=== PATIENT | male | born 1945 | race Two or more races ===

== ENCOUNTER 2018-04-17 01:48 | Inpatient (IN) | payer OTHER, MEDICARE ==
[~2018-04-17] VITALS: Ht 167.6 cm; Wt 58.1 kg
[2018-04-17 02:00] VITALS: BP 159/76
[2018-04-17] MEDS ORDERED: AMLO10TA4 PO (02:57)
[2018-04-17] MEDS ORDERED: LISI40TA4 PO (02:57)
[2018-04-17] MEDS ORDERED: MELO-107 PO (02:57)
--- NOTE | 2018-04-17 03:19 | NUR ---
ADMIT RN NOTES PT Casimiro FROM [place] WITH 2 EMT VIA [employer], PT A/OX4, TOLERATING ROOM AIR 98% DENIES PAIN AT THIS TIME NO NAUSEA AND VOMITING NOT IN DISTRESS PT C/O HAS RIGHT LEG AND RIGHT ARM WEAKNESS X 1 WEEK. NOT IN DISTRESS. HEAD TO TOE SKIN ASSESSMENT IS DONE SKIN IS INTACT, KEPT CLEAN DRY AND COMFORTABLE, SAFETY MEASURES IMPLEMENTED WILL MONITOR.
[2018-04-17] MEDS ORDERED: ZOLPIDEM TARTRATE 5 MG TABLET PO PRN (03:30)
[2018-04-17] MEDS ORDERED: MAGNESIUM HYDROXIDE 30 ML UDC PO PRN (03:30)
[2018-04-17] MEDS ORDERED: ACETAMINOPHEN 325 MG TABLET PO PRN (03:30)
[2018-04-17] MEDS ORDERED: HYDROCODONE/APAP 5/325MG 1 EACH TABLET PO PRN (03:30)
[2018-04-17] MEDS ORDERED: MAG HYDROX/AL HYDROX/SIMETH 30 ML UDC PO PRN (03:30)
[2018-04-17] MEDS ORDERED: Z GUARD REMEDY 2 OZ OINT TP PRN (03:30)
[2018-04-17] MEDS ORDERED: ONDANSETRON HCL/PF 4 MG/2 ML VIAL IVP PRN (03:30)
--- NOTE | 2018-04-17 06:08 | NUR ---
FIRE EATER NOTES ASLEEP AND EASILY AWAKEN STABLE, NOT IN DISTRESS. TOLERATING ROOM AIR 98%. RESPIRATION EVEN AND UNLABORED. KEPT CLEAN AND DRY AND COMFORTABLE, ALL NURSING CARE RENDERED. NEEDS ATTENDED AND ANTICIPATED, GOOD SKIN CARE PROVIDED. NO COMPLAIN OF PAIN. SR 60'S. ON LOW BED AT ALL TIMES TO ENSURE SAFETY. SAFE HAZARD FREE ENVIRONMENT PROVIDED. CALL LIGHT WITHIN EASY TO REACH. WILL ENDORSE NEXT SHIFT CONTINUITY OF CARE.
--- NOTE | 2018-04-17 07:15 | NUR ---
telephone lineman initial notes received patient in bed, awake, head of bed elevated, no SOB or distress noted, on room air and tolerated well. Alert and oriented x 3, verbally responsive and able to make needs known. On tele monitor SB hear rate of 55. No complaint of pain or discomfort noted. IV intact and patent hL only. Call light with in patient reach, will continue to monitor accordingly.
[2018-04-17 07:23] LABS: BASOPHILS % (AUTO) 0.2 % (0.0-2.0); EOSINOPHILS % (AUTO) 0.7 % (0.0-6.0); HEMATOCRIT 39 % (39-51); HEMOGLOBIN 13.5 g/dL (13.5-17.5); LYMPHOCYTES # (AUTO) 1.4 /CMM (0.8-4.8); MEAN CORPUSCULAR HEMOGLOBIN 32 PG (26.0-33.0); MEAN CORPUSCULAR HGB CONC 34 g/dl (31.0-36.0); MEAN CORPUSCULAR VOLUME 93 fL (80-96); MONOCYTES # (AUTO) 0.6 /CMM (0.1-1.30); MONOCYTES % (AUTO) 6.3 % (2.0-12.0); NEUTROPHILS # (AUTO) 7.1 /CMM (1.8-8.9); NEUTROPHILS % (AUTO) 77.8 % (43.0-81.0); PLATELET COUNT (AUTO) 251 /CMM (150-450); RDW COEFFICIENT OF VARIATION 13.1 (11.5-15.0); RED BLOOD CELL COUNT(AUTO) 4.23 MIL/uL (4.5-6.0); WHITE BLOOD COUNT (AUTO) 9.1 K/uL (4.3-11.0)
[2018-04-17 07:38] LABS: CALCIUM, SERUM 8.5 mg/dL (8.5-10.1); CARBON DIOXIDE 29 mmol/L (21-32); CHLORIDE 97 mmol/L (98-107); CREATININE 0.5 mg/dL (0.6-1.3); GLUCOSE 133 mg/dL (74-106); MAGNESIUM 1.9 mg/dL (1.8-2.4); PHOSPHORUS 3.3 mg/dL (2.5-4.9); POTASSIUM 3.4 mmol/L (3.5-5.1); SODIUM SERUM 133 mmol/L (136-145); UREA NITROGEN, BLOOD 5 mg/dL (7-18)
[2018-04-17 07:48] LABS: CHOLESTEROL 146 mg/dL (<200); HDL CHOLESTEROL 57 mg/dL (40-60); LDL 83 mg/dL (0-99); THYROID STIMULATING HORMONE 2.189 uIU/mL (0.358-3.74); TRIGLYCERIDES 31 mg/dL (30-150)
[2018-04-17 08:00] VITALS: BP_SYST 141; BP_SYST 149; BP_DIAS 74; BP_DIAS 91
[2018-04-17] MEDS: ASPIRIN 325 MG TABLET PO SCH (08:28)
[2018-04-17] MEDS: AMLODIPINE BESYLATE 10 MG TABLET PO SCH (08:28)
[2018-04-17] MEDS: PANTOPRAZOLE 40 MG TABLET.DR PO SCH (08:28)
[2018-04-17] MEDS: LISINOPRIL (20MG) 20 MG TABLET PO SCH (08:29)
[2018-04-17] MEDS ORDERED: POTASSIUM CHLORIDE 20 MEQ TAB.PRT.SR PO SCH (11:00)
[2018-04-17] MEDS ORDERED: POTASSIUM CHLORIDE 20 MEQ TAB.PRT.SR PO ONE (14:17)
[2018-04-17 16:00] VITALS: BP 129/71
--- NOTE | 2018-04-17 19:00 | NUR ---
MS RN OPENING NOTE RECEIVE PATIENT AWAKE IN BED, A/O X 3, NO SOB OR DISTRESS NOTED, CALL LIGHT WITHIN REACH. SAFETY MEASURES IMPLEMENTED. WILL CONTINUE TO MONITOR THROUGHOUT SHIFT.
--- NOTE | 2018-04-17 19:15 | NUR ---
ms rn closing notes All needs provided, attended, and anticipated. Patient in stable condition. Endorsed to next shift RN to continue care. Call light with in patient reach.
[2018-04-17 20:00] VITALS: BP 125/70
[2018-04-17 21:13] LABS: APPEARANCE,URINE SL CLOUDY (CLEAR); BILIRUBIN,URINE NEGATIVE (NEGATIVE); BLOOD, URINE NEGATIVE Ery/uL (NEGATIVE); COLOR,URINE YELLOW (YELLOW); KETONES,URINE NEGATIVE (NEGATIVE); LEUKOCYTE ESTERASE ,URINE NEGATIVE (NEGATIVE); NITRITE, URINE NEGATIVE (NEGATIVE); PROTEIN,URINE NEGATIVE (NEGATIVE); UGLUCOSE NEGATIVE (NEGATIVE); UROBILINOGEN,URINE 0.2 EU/dL (0.2)
[2018-04-17] MEDS: ATORVASTATIN 40 MG TABLET PO SCH (21:33)
[2018-04-17] MEDS: IV NS 0.9% 1,000 ML IV PRN (21:41)
--- NOTE | 2018-04-18 06:12 | NUR ---
MS RN CLOSING NOTES ASLEEP AND EASILY AWAKEN STABLE, NOT IN DISTRESS. NO C/O PAIN. TOLERATING ROOM AIR 99%. RESPIRATION EVEN AND UNLABORED. KEPT CLEAN AND DRY AND COMFORTABLE, ALL NURSING CARE RENDERED. NEEDS ATTENDED AND ANTICIPATED, GOOD SKIN CARE PROVIDED. ON LOW BED AT ALL TIMES TO ENSURE SAFETY. SAFE HAZARD FREE ENVIRONMENT PROVIDED. CALL LIGHT WITHIN EASY TO REACH. WILL ENDORSE NEXT SHIFT CONTINUITY OF CARE.
--- NOTE | 2018-04-18 07:00 | NUR ---
RN INITIAL NOTES PT AWAKE AND ALERT. IV ACCES R AC 20 PATENT AND INTACT RUNNING NS AT 75 ML. PT ON BED REST. SKIN INTACT. BED POSITION ON LOW, CALL LIGHT WITHIN REACH.
[2018-04-18 07:02] LABS: INR 0.93 (0.87-1.13)
[2018-04-18 07:06] LABS: ALANINE AMINOTRANSFERASE 20 U/L (12-78); ALBUMIN 3.1 g/dL (3.4-5.0); ALKALINE PHOSPHATASE 64 U/L (46-116); ASPARTATE AMINOTRANSFERASE 20 U/L (15-37); BILIRUBIN,DIRECT 0.1 mg/dL (0.0-0.2); BILIRUBIN,TOTAL 0.4 mg/dL (0.2-1.0); CALCIUM, SERUM 8.7 mg/dL (8.5-10.1); CARBON DIOXIDE 31 mmol/L (21-32); CHLORIDE 101 mmol/L (98-107); CREATININE 0.5 mg/dL (0.6-1.3); GLUCOSE 94 mg/dL (74-106); MAGNESIUM 1.9 mg/dL (1.8-2.4); PHOSPHORUS 3.8 mg/dL (2.5-4.9); POTASSIUM 3.9 mmol/L (3.5-5.1); SODIUM SERUM 136 mmol/L (136-145); TOTAL PROTEIN, SERUM 6.2 g/dL (6.4-8.2); UREA NITROGEN, BLOOD 8 mg/dL (7-18)
[2018-04-18 07:12] LABS: CREATINE KINASE, TOTAL 63 U/L (39-308); THYROID STIMULATING HORMONE 2.747 uIU/mL (0.358-3.74)
[2018-04-18 07:15] LABS: IRON, SERUM 49 ug/dl (50-175); TOTAL IRON BINDING CAPACITY 227 ug/dl (250-450)
[2018-04-18 08:00] VITALS: BP 129/67
[2018-04-18] MEDS: LISINOPRIL (20MG) 20 MG TABLET PO SCH (08:27)
[2018-04-18] MEDS: PANTOPRAZOLE 40 MG TABLET.DR PO SCH (08:27)
[2018-04-18] MEDS: AMLODIPINE BESYLATE 10 MG TABLET PO SCH (08:27)
[2018-04-18] MEDS: ASPIRIN 325 MG TABLET PO SCH (08:27)
[2018-04-18 13:28] LABS: FREE PSA 0.23 ng/mL (0.00-45); PROSTATE SPECIFIC ANTIGEN SCR 0.93 ng/mL (0.00-4.00)
[2018-04-18 16:00] VITALS: BP 117/70
[2018-04-18] MEDS: IV NS 0.9% 1,000 ML IV PRN (17:56)
--- NOTE | 2018-04-18 19:11 | NUR ---
RN CLOSING NOTES PT NEEDS WERE ATTENDED AND ANTICIPATED. PT IS STABLE AT THIS TIME. PT CARE IS ENDORSED TO THE NIGHT RN. CALL LIGHT WITHIN PATIENT'S REACH.
--- NOTE | 2018-04-18 19:33 | NUR ---
MS/RN OPENING NOTES PATIENT IN BED, AWAKE, ALERT, CAN VERBALIZE NEEDS, WATCHING TV, DENIES PAIN, ABLE TO MOVE LEFT SIDE BUT RIGHT SIDED WEAKNESS, RESPIRATIONS EVEN AND UNLABORED, SKIN WARM TO TOUCH, IV FLUIDS GAUGE 20 ON RIGHT A/C PATENT WITH NO S/S OF INFILTRATION. CALL LIGHTS WITHIN REACH, BED IN LOCK POSITION WILL MONITOR.
[2018-04-18 20:00] VITALS: BP 117/73
[2018-04-18] MEDS: ATORVASTATIN 40 MG TABLET PO SCH (20:59)
--- NOTE | 2018-04-19 06:15 | NUR ---
321-2 PATIENT ABLE TO SLEEP DURING THE NIGHT, ABLE TO VERBALIZE NEEDS, ASSISTED FOR SAFETY, REQUIRE ONE PERSON ASSIST WITH RIGHT SIDE WEAKNESS, CALL LIGHTS WITHIN REACH, BED IN LOCK POSITION, WILL ENDORSE TO AM RN FOR ENRIKE.
[2018-04-19 07:12] LABS: BASOPHILS % (AUTO) 0.4 % (0.0-2.0); EOSINOPHILS % (AUTO) 1.9 % (0.0-6.0); HEMATOCRIT 43 % (39-51); HEMOGLOBIN 14.4 g/dL (13.5-17.5); LYMPHOCYTES # (AUTO) 2.2 /CMM (0.8-4.8); LYMPHOCYTES % (AUTO) 25.8 % (20.0-44.0); MEAN CORPUSCULAR HEMOGLOBIN 32 PG (26.0-33.0); MEAN CORPUSCULAR HGB CONC 33 g/dl (31.0-36.0); MEAN CORPUSCULAR VOLUME 95 fL (80-96); MONOCYTES # (AUTO) 0.5 /CMM (0.1-1.30); MONOCYTES % (AUTO) 6.2 % (2.0-12.0); NEUTROPHILS # (AUTO) 5.6 /CMM (1.8-8.9); NEUTROPHILS % (AUTO) 65.7 % (43.0-81.0); PLATELET COUNT (AUTO) 287 /CMM (150-450); RED BLOOD CELL COUNT(AUTO) 4.58 MIL/uL (4.5-6.0); WHITE BLOOD COUNT (AUTO) 8.6 K/uL (4.3-11.0)
--- NOTE | 2018-04-19 07:19 | NUR ---
RN INITIAL NOTES PT IS AWAKE AND ALERT, SITTING ON BED. NO SIGNS OF LABORED BREATHING. IV ACCESS 20G ON THE RIGHT AC IS PATENT AND INTACT. RIGHT SIDE LOWER AND UPPER EXTREMITY WEAKNESS. PT DENIES ANY PAIN. PT IS ON BEDREST BUT WILL CALL FOR ASSISTANCE IF NEEDED. CALL LIGHT WITHIN REACH. WILL CONTINUE TO MONITOR AND ASSESS THE PT.
[2018-04-19 07:34] LABS: CALCIUM, SERUM 8.8 mg/dL (8.5-10.1); CARBON DIOXIDE 29 mmol/L (21-32); CHLORIDE 98 mmol/L (98-107); CREATININE 0.7 mg/dL (0.6-1.3); GLUCOSE 122 mg/dL (74-106); PHOSPHORUS 3.5 mg/dL (2.5-4.9); POTASSIUM 4.3 mmol/L (3.5-5.1); SODIUM SERUM 134 mmol/L (136-145); UREA NITROGEN, BLOOD 7 mg/dL (7-18)
[2018-04-19 08:00] VITALS: BP 151/69
[2018-04-19] MEDS: PANTOPRAZOLE 40 MG TABLET.DR PO SCH (08:43)
[2018-04-19] MEDS: AMLODIPINE BESYLATE 10 MG TABLET PO SCH (08:44)
[2018-04-19] MEDS: LISINOPRIL (20MG) 20 MG TABLET PO SCH (08:44)
[2018-04-19] MEDS: ASPIRIN 325 MG TABLET PO SCH (08:44)
--- NOTE | 2018-04-19 15:01 | NUR ---
ms rn notes Received a call from the radiologist regarding patient MRI of the C-spine and MRI brain result and mentioned about the compression on the C5-C6. Paged Dr. Rodriguez about the MRI result and unable to contact MD and left a voicemail message. Informed Dr. Carr about the MRI result and per MD she will contact neurosurgeon. Hold discharge for now per charge nurse, and she will contact counter caser to transfer patient to another hospital. All orders carried out and noted.
[2018-04-19 16:00] VITALS: BP 106/62
[2018-04-19 16:09] VITALS: BP 106/62
--- NOTE | 2018-04-19 19:13 | NUR ---
ms rn closing notes All needs provided, attended, and anticipated. Patient in stable condition at this time. No complaint of pain or discomfort at this time. Endorsed to next shift RN to continue care.
--- NOTE | 2018-04-19 19:15 | NUR ---
RN OPENING NOTES RECEIVED PT IN BED, ALERT AND ORIENTED X 4, NO SOB, BREATHING EVEN AND UNLABORED, DENIES PAIN ,NO N/V, IN NO ACUTE DISTRESS. ALL PATIENT'S NEEDS ATTENDED TO. PLACED CALL LIGHT WITHIN REACH. BD IN LOW POSITION AND LOCKED IN PLACE. PATIENT AWARE THAT WE ARE WAITING FOR BED AVAILABILITY IN [facility] FOR HIS TRANSFER. WILL CONTINUE TO MONITOR PT.
--- NOTE | 2018-04-19 20:27 | NUR ---
RN NOTES PATIENT'S DAUGHTER, SAMPSON, AT BEDSIDE, UPDATE GIVEN RE: PATIENT'S TRANSFER. AGREES WITH PLAN OF CARE.
[2018-04-19] MEDS: ATORVASTATIN 40 MG TABLET PO SCH (21:02)
--- NOTE | 2018-04-19 23:14 | NUR ---
RN NOTES REPORT GIVEN TO EVON MULTANI AT [facility]. PT MADE AWARE OF TRANSFER, AGREES WITH PLAN OF CARE.
--- NOTE | 2018-04-20 00:05 | NUR ---
DISTRIBUTION OPERATION SUPERVISOR NOTES ALL DISCHARGE INSTRUCTIONS GIVEN TO PATIENT, VERBALIZED UNDERSTANDING. PT WAS UNABLE TO SIGN DUE TO RIGHT SIDED WEAKNESS. PT ALERT AND ORIENTED, PICKED UP BY 2 PERSONNEL OF [facility] [employer] IN STABLE CONDITION. SKIN INTACT AND IN NO ACUTE DISTRESS. INFORMED EVON ALEXANDRA OF PATIENT'S ARRIVAL AND WILL BE ADMITTED TO [facility], RM [phone]. PATIENT EXITED UNIT SAFELY VIA GURNEY, NO SOB, BREATHING EVEN AND UNLABORED AND DENIES PAIN. PATIENT WITH NO BELONGINGS PER PATIENT, HIS DAUGHTER BROUGHT EVERYTHING HOME.
== END 2018-04-20 00:05 | disposition short-term general hospital (02) | DRG 58 ==
LOC: TELE 01:48 → MED 08:26
PROVIDERS: ADMIT Hospitalist; ATTEND Hospitalist
DX: G72.9 Myopathy, unspecified (principal); M50.022 Cervical disc disorder at C5-C6 level with myelopathy; I10 Essential (primary) hypertension; M48.02 Spinal stenosis, cervical region; E87.1 Hypo-osmolality and hyponatremia; E78.5 Hyperlipidemia, unspecified; E87.6 Hypokalemia; K21.9 Gastro-esophageal reflux disease without esophagitis; F17.200 Nicotine dependence, unspecified, uncomplicated; R29.6 Repeated falls; M19.90 Unspecified osteoarthritis, unspecified site
CPT/HCPCS: 36415; 70450-TC; 70551-TC; 71045-TC; 71250-TC; 72141-TC; 80048-TC; 80061-TC; 80076-TC; 81000-TC; 82550-TC; 82746; 83540-TC; 83735-TC; 84100-TC; 84153-TC; 84154-TC; 84443-TC; 85025-TC; 85652-TC; 85730-TC; 86140-TC; 87081-TC; 87086-TC; 92611-TC; 93307-TC; 93880-TC; 97112-TC; 97530-TC; A4606; J7030; Z7610

== ENCOUNTER 2018-04-22 19:37 | Inpatient (IN) | payer OTHER, MEDICARE ==
[~2018-04-22] VITALS: Ht 180.3 cm; Wt 53.5 kg
[~2018-04-22 19:37] MED LIST: AMLO10TA4 PO; LISI40TA4 PO; MELO-107 PO
[2018-04-22 20:00] VITALS: BP 111/67
[2018-04-22] MEDS ORDERED: PANT40TA2 PO (22:35)
[2018-04-22] MEDS ORDERED: LISI40TA4 PO (22:35)
[2018-04-22] MEDS ORDERED: [UNRECOGNIZED DRUG - CODE] SQ (22:35)
[2018-04-22] MEDS ORDERED: MORPHINE IVP (22:35)
[2018-04-22] MEDS ORDERED: [UNRECOGNIZED DRUG - CODE] IV (22:35)
[2018-04-22] MEDS ORDERED: TRAM50TA2 PO (22:35)
[2018-04-22] MEDS ORDERED: ONDA4TAB5 IVP (22:35)
[2018-04-22] MEDS ORDERED: HYDR20VI6 IV (22:35)
[2018-04-22] MEDS ORDERED: CYCL10TA9 PO (22:35)
[2018-04-22] MEDS ORDERED: AMLO10TA2 PO (22:35)
[2018-04-22] MEDS ORDERED: DOCU-141 PO (22:35)
[2018-04-23 00:10] VITALS: BP 137/81
[2018-04-23] MEDS ORDERED: MORPHINE SULFATE INJ 2 MG/ML DISP.SYRIN IV PRN (02:00)
[2018-04-23] MEDS ORDERED: ONDANSETRON HCL/PF 4 MG/2 ML VIAL IVP PRN (02:00)
[2018-04-23] MEDS ORDERED: Z GUARD REMEDY 2 OZ OINT TP PRN (02:00)
[2018-04-23] MEDS ORDERED: ACETAMINOPHEN 325 MG TABLET PO PRN (02:00)
[2018-04-23] MEDS ORDERED: ZOLPIDEM TARTRATE 5 MG TABLET PO PRN (02:00)
[2018-04-23] MEDS ORDERED: MAGNESIUM HYDROXIDE 30 ML UDC PO PRN (02:00)
[2018-04-23] MEDS ORDERED: HYDROCODONE/APAP 10/325MG 1 EA TABLET PO PRN (02:00)
[2018-04-23 03:14] LABS: BASOPHILS % (AUTO) 0.2 % (0.0-2.0); EOSINOPHILS % (AUTO) 0.4 % (0.0-6.0); HEMATOCRIT 42 % (39-51); HEMOGLOBIN 14.1 g/dL (13.5-17.5); LYMPHOCYTES # (AUTO) 1.2 /CMM (0.8-4.8); LYMPHOCYTES % (AUTO) 10.8 % (20.0-44.0); MEAN CORPUSCULAR HEMOGLOBIN 32 PG (26.0-33.0); MEAN CORPUSCULAR HGB CONC 34 g/dl (31.0-36.0); MEAN CORPUSCULAR VOLUME 95 fL (80-96); MONOCYTES # (AUTO) 0.6 /CMM (0.1-1.30); MONOCYTES % (AUTO) 5.5 % (2.0-12.0); NEUTROPHILS # (AUTO) 9.6 /CMM (1.8-8.9); NEUTROPHILS % (AUTO) 83.1 % (43.0-81.0); PLATELET COUNT (AUTO) 276 /CMM (150-450); RDW COEFFICIENT OF VARIATION 13.1 (11.5-15.0); RED BLOOD CELL COUNT(AUTO) 4.41 MIL/uL (4.5-6.0); WHITE BLOOD COUNT (AUTO) 11.6 K/uL (4.3-11.0)
[2018-04-23 03:36] LABS: ALANINE AMINOTRANSFERASE 26 U/L (12-78); ALBUMIN 3.5 g/dL (3.4-5.0); ALKALINE PHOSPHATASE 75 U/L (46-116); ASPARTATE AMINOTRANSFERASE 24 U/L (15-37); BILIRUBIN,TOTAL 0.7 mg/dL (0.2-1.0); CALCIUM, SERUM 8.4 mg/dL (8.5-10.1); CARBON DIOXIDE 28 mmol/L (21-32); CHLORIDE 92 mmol/L (98-107); CREATININE 0.5 mg/dL (0.6-1.3); GLUCOSE 118 mg/dL (74-106); PHOSPHORUS 2.7 mg/dL (2.5-4.9); POTASSIUM 3.9 mmol/L (3.5-5.1); SODIUM SERUM 126 mmol/L (136-145); TOTAL PROTEIN, SERUM 6.9 g/dL (6.4-8.2); UREA NITROGEN, BLOOD 9 mg/dL (7-18)
[2018-04-23 04:00] VITALS: BP 136/83
--- NOTE | 2018-04-23 06:50 | NUR ---
IMPROVEMENT DIRECTOR NOTES AWAKE & RESPONSIVE. NOT IN ANY DISTRESS. NO SOB NOTED. DENIES ANY PAIN OR DISCOMFORT AT THIS TIME. ON TELE ST @ 108 WITH IVF INFUSING WELL. AM CARE DONE. MONITORED ACCORDINGLY. CALL LIGHT WITHIN REACH. BED IN LOWEST POSITION. SR UP X 3 FOR SAFETY WITH BED ALARM ON. WILL ENDORSE TO NEXT SHIFT.
[2018-04-23 07:06] LABS: EOSINOPHILS % (AUTO) 0.1 % (0.0-6.0); HEMATOCRIT 43 % (39-51); HEMOGLOBIN 14.6 g/dL (13.5-17.5); LYMPHOCYTES % (AUTO) 7.8 % (20.0-44.0); MEAN CORPUSCULAR HEMOGLOBIN 32 PG (26.0-33.0); MEAN CORPUSCULAR HGB CONC 34 g/dl (31.0-36.0); MEAN CORPUSCULAR VOLUME 93 fL (80-96); MONOCYTES # (AUTO) 0.6 /CMM (0.1-1.30); MONOCYTES % (AUTO) 4.3 % (2.0-12.0); NEUTROPHILS # (AUTO) 11.6 /CMM (1.8-8.9); NEUTROPHILS % (AUTO) 87.8 % (43.0-81.0); PLATELET COUNT (AUTO) 280 /CMM (150-450); RDW COEFFICIENT OF VARIATION 13.2 (11.5-15.0); RED BLOOD CELL COUNT(AUTO) 4.59 MIL/uL (4.5-6.0); WHITE BLOOD COUNT (AUTO) 13.2 K/uL (4.3-11.0)
[2018-04-23 07:22] LABS: CALCIUM, SERUM 8.5 mg/dL (8.5-10.1); CARBON DIOXIDE 25 mmol/L (21-32); CHLORIDE 91 mmol/L (98-107); CREATININE 0.5 mg/dL (0.6-1.3); GLUCOSE 119 mg/dL (74-106); MAGNESIUM 1.7 mg/dL (1.8-2.4); PHOSPHORUS 2.8 mg/dL (2.5-4.9); SODIUM SERUM 125 mmol/L (136-145); UREA NITROGEN, BLOOD 9 mg/dL (7-18)
--- NOTE | 2018-04-23 07:37 | NUR ---
AIRPORT TRAFFIC CONTROLLER NOTES PATIENT RECEIVED RESTING INSIDE ROOM. AWAKE, ALERT AND ORIENTED X 2, VERBALLY RESPONSIVE AND RESPONDS TO VERBAL AND TACTILE STIMULI. BREATHING EVEN AND UNLABORED. NO SOB OR ACUTE DISTRESS NOTED AT THIS TIME. PATIENT NOTED ATTEMPTING TO GET OUT OF BED, SIDE RAILS X [address] PRECAUTIONS IN PLACE. BED LOCKED AND IN LOW POSITION. BED ALARM ON. PATIENT REMINDED IF SAFETY MEASURES. CONTINUE ON TELEMETRY, SALICYLIC ACID BLENDER IN PLACE. ST 101. NECK BRACE AT BEDSIDE. PER RN REPORT, NECK BRACE TO BE USED WHEN PATIENT IS OUT OF BED. WILL CONTINUE TO MONITOR. CALL LIGHT WITHIN EASY REACH
[2018-04-23 08:00] VITALS: BP 145/84
[2018-04-23] MEDS: AMLODIPINE BESYLATE 10 MG TABLET PO SCH (08:29)
[2018-04-23] MEDS: DOCUSATE SODIUM 100 MG CAPSULE PO SCH ×2 (08:29→16:27)
[2018-04-23] MEDS: LISINOPRIL (20MG) 20 MG TABLET PO SCH (08:29)
[2018-04-23] MEDS: PANTOPRAZOLE 40 MG TABLET.DR PO SCH (08:29)
[2018-04-23] MEDS: Magnesium 1GM/D5W 100ML PREMIX 100 ML IV SCH ×2 (10:22→11:33)
--- NOTE | 2018-04-23 10:54 | NUR ---
SALES SUPPORT REPRESENTATIVE NOTES PATIENT SEEN AND EXAMINED BY DR. JACOB, VERIFIED ORDER FOR NECK BRACE USE. PER DR. JACOB, TO USE NECK BRACE WHEN PATIENT IS GETTING OUT OF BED. PER DR. JACOB, PATIENT MAY NEED TO UTILIZE NECK BRACE USE UNTIL 14 DAYS POST OP SUPPORT WITH CERVICAL FIXATION. ORDER NOTED AND CARRIED OUT. WILL CONTINUE TO MONITOR
[2018-04-23 12:00] VITALS: BP 139/67
[2018-04-23 16:00] VITALS: BP 123/76
--- NOTE | 2018-04-23 18:21 | NUR ---
JOINTER SUBMARINE CABLE NOTES PATIENT RESTING INSIDE ROOM. AWAKE, ALERT AND ORIENTED X 2. VERBALLY RESPONSIVE AND RESPONDS TO VERBAL AND TACTILE STIMULI. PATIENT WITH EPISODES OF CONFUSION AND FORGETFULNESS. WITH ATTEMPTS OF GETTING OUT OF BED UNASSISTED. FALL PRECAUTIONS IN PLACE, BED ALARM ON, SIDE RAILS UP X 3. FAMILY ON BEDSIDE. IV INTACT AND PATENT, SWELLING ON IV SITE. WILL ENDORSE TO INCOMING SHIFT FOR ENRIKE. BED LOCKED AND IN LOW POSITION. CALL LIGHT WITHIN EASY REACH
--- NOTE | 2018-04-23 19:20 | NUR ---
TELE/RN NOTES RECEIVED PT. LYING IN BED. PT. IS AWAKE, ALERT AND ORIENTED X2, PER DAYSHIFT NURSE EPISODES OF CONFUSION AND FORGETFULNESS NOTED. BREATHING EVEN AND UNLABORED ON ROOM AIR. NO SOB, RESPIRATORY DISTRESS OR COMPLAINTS OF PAIN NOTED AT THIS TIME. PT. WITH EXTERNAL REGIONAL CLINICAL DIRECTOR PRESENT AND INTACT CURRENT RHYTHM = SINUS RHYTHM HR 85. PT. WITH LEFT AC 20 GAUGE IV SALINE LOCK PRESENT, PATENT AND INTACT. BED LOCKED AND IN LOWEST POSITION, SIDE RAILS UP X3, BED ALARM ON, CALL LIGHT WITHIN REACH, WILL CONTINUE TO MONITOR.
[2018-04-23 20:00] VITALS: BP 115/66
[2018-04-24] VITALS (7 sets, daily range): BP systolic 82–132; BP diastolic 41–74
--- NOTE | 2018-04-24 06:50 | NUR ---
TELE/RN NOTES PT. IS LYING IN BED RESTING. BREATHING EVEN AND UNLABORED ON ROOM AIR. NO SOB, RESPIRATORY DISTRESS OR COMPLAINTS OF PAIN NOTED AT THIS TIME. PT. WITH EXTERNAL FACE WORKER PRESENT AND INTACT CURRENT RHYTHM = SINUS RHYTHM HR 80. PT. WITH LEFT AC 20 GAUGE IV SALINE LOCK PRESENT, PATENT AND INTACT. ALL PT. NEEDS MET. BED LOCKED AND IN LOWEST POSITION, SIDE RAILS UP X3, BED ALARM ON, CALL LIGHT WITHIN REACH, WILL ENDORSE TO DAYSHIFT NURSE FOR CONTINUITY OF CARE.
--- NOTE | 2018-04-24 07:10 | NUR ---
TELE/RN OPENING NOTE PATIENT IS RECEIVED IN BED AWAKE. PATIENT ALERT AND ORIENTED X2. DENIES SOB. PAITNET IN ROOM AIR. RESPIRATION REGULAR AND UNLABORED. DENIES PAIN. EXTERNAL TELE MONITOR IS IN PLACE AND READING IS SR 84. LAC G 20D PATENT AND SALINE LOCKED. BED LOW AND LOCKED. SIDE RAILS UP X3. CALL LIGHT WITHIN REACH. WILL CONTINUE TO MONITOR.
[2018-04-24 07:25] LABS: BASOPHILS % (AUTO) 0.2 % (0.0-2.0); EOSINOPHILS % (AUTO) 0.1 % (0.0-6.0); HEMATOCRIT 42 % (39-51); HEMOGLOBIN 13.8 g/dL (13.5-17.5); LYMPHOCYTES # (AUTO) 0.8 /CMM (0.8-4.8); LYMPHOCYTES % (AUTO) 7.2 % (20.0-44.0); MEAN CORPUSCULAR HEMOGLOBIN 32 PG (26.0-33.0); MEAN CORPUSCULAR HGB CONC 33 g/dl (31.0-36.0); MEAN CORPUSCULAR VOLUME 94 fL (80-96); MONOCYTES # (AUTO) 0.4 /CMM (0.1-1.30); MONOCYTES % (AUTO) 3.4 % (2.0-12.0); NEUTROPHILS # (AUTO) 9.4 /CMM (1.8-8.9); NEUTROPHILS % (AUTO) 89.1 % (43.0-81.0); PLATELET COUNT (AUTO) 266 /CMM (150-450); RDW COEFFICIENT OF VARIATION 13.1 (11.5-15.0); RED BLOOD CELL COUNT(AUTO) 4.39 MIL/uL (4.5-6.0); WHITE BLOOD COUNT (AUTO) 10.5 K/uL (4.3-11.0)
[2018-04-24 07:37] LABS: CALCIUM, SERUM 8.8 mg/dL (8.5-10.1); CARBON DIOXIDE 28 mmol/L (21-32); CHLORIDE 91 mmol/L (98-107); CREATININE 0.5 mg/dL (0.6-1.3); GLUCOSE 108 mg/dL (74-106); MAGNESIUM 2.2 mg/dL (1.8-2.4); PHOSPHORUS 3.4 mg/dL (2.5-4.9); SODIUM SERUM 125 mmol/L (136-145); UREA NITROGEN, BLOOD 18 mg/dL (7-18)
[2018-04-24] MEDS: PANTOPRAZOLE 40 MG TABLET.DR PO SCH (07:38)
[2018-04-24 07:47] LABS: THYROID STIMULATING HORMONE 0.894 uIU/mL (0.358-3.74); URIC ACID 3.2 mg/dL (2.6-7.2)
[2018-04-24] MEDS: DOCUSATE SODIUM 100 MG CAPSULE PO SCH ×2 (08:37→16:02)
[2018-04-24] MEDS: LISINOPRIL (20MG) 20 MG TABLET PO SCH (08:38)
[2018-04-24] MEDS: AMLODIPINE BESYLATE 10 MG TABLET PO SCH (08:38)
--- NOTE | 2018-04-24 10:31 | NUR ---
MS/RN NOTE RECEIVED NEW ORDER OF ENSURE FROM DR SARMIENTO. THE ORDER IS READ BACK, VERIFIED. NOTED AND CARRIED OUT.
--- NOTE | 2018-04-24 13:18 | NUR ---
MS/RN NOTE UPON ASSESSMENT SUSPECTED BLADDER DISTENSION. BLADDER SCAN DONE AND NOTED URINE >900. NEW ORDER FOR GARCIA CATH IS OBTAINED FROM DR MCDANIELS. READ BACK, VERIFIED. NOTED AND CARRIED OUT.
--- NOTE | 2018-04-24 13:19 | NUR ---
MS/RN NOTE DRAINED 400 ML URINE. WILL CONTINUE DRAINING GRADUALLY. PATIENT IN STABLE CONDITION.
[2018-04-24] MEDS: ENSURE ENLIVE CHOC 237 ML CAN PO SCH ×2 (14:52→18:04)
[2018-04-24 15:49] LABS: URINE SODIUM, RANDOM 42 mmol/l (40-220)
[2018-04-24 16:00] LABS: OSMOLALITY,URINE 573 mOS/kg (340-1090)
--- NOTE | 2018-04-24 18:00 | NUR ---
MS/RN NOTE RECEIVED NEW ORDER OF NICOTIN PATCH FROM DR SARMIENTO. THE ORDER IS READ BACK, VERIFIED. NOTED AND CARRIED OUT.
--- NOTE | 2018-04-24 18:31 | NUR ---
MS/RN CLOSING NOTE PATIENT ALERT AND ORIENTED 2. REDIRECTION AND REORIENTATION PROVIDED NEEDED. DENIES SOB. RESPIRATION REGULAR AND UNLABORED. PATIENT IN ROOM AIR AND SATURATION AT 97%. DENIES PAIN. PATIENT WITH NO S/S DISTRESS. REMAINS IN STABLE CONDITION. LAC G 20 PATENT AND SALINE LOCKED. GARCIA CATH DRAINING FREELY. NOTED YELLOW AND CLEAR URINE. NO BLADDER DISTENSION NOTED. BED LOW AND LOCKED. SIDE RAILS UP X3. CALL LIGHT WITHIN REACH. WILL ENDORSE TO FOLLOW UP SPECIALIST.
--- NOTE | 2018-04-24 19:30 | NUR ---
MS RN NOTES RECEIVED ON BED A/O X1-2,SPEAK CITIZEN OF [place],S/P LAMINECTOMY ON 04/20 AT [facility].DRESSING TO C3-C6 INTACT AND DRY.GARCIA CATH IN PLACE DRAINING YELLOWISH OUTPUT.SALINE LOCK LEFT AC INTACT AND PATENT.FAMILY MEMBERS AT BEDSIDE.CALL LIGHT IN REACH,NEEDS ANTICIPATED.
--- NOTE | 2018-04-25 06:35 | NUR ---
MS RN NOTES SLEPT WITH INTERVALS.NO FALL,NO INJURYPATIENT FOR D/C TO ARU OR SNF.CALL LIGHT ION REACH,NEEDS ANTICIPATED.
--- NOTE | 2018-04-25 07:40 | NUR ---
MS RN NOTES PATIENT RECEIVED RESTING INSIDE ROOM. AWAKE, ALERT AND ORIENTED X 2, VERBALLY RESPONSIVE AND RESPONDS TO VERBAL AND TACTILE STIMULI. BREATHING EVEN AND UNLABORED. NO SOB OR ACUTE DISTRESS NOTED AT THIS TIME. PATIENT CALM AND RELAXED. NO CHANGES IN LOC NOTED. IV INTACT AND PATENT. NECK BRACE AT BEDSIDE. WILL CONTINUE TO MONITOR. BED LOCKED AND IN LOW POSITION. BILATERAL UPPER SIDE RAILS UP AND LOCKED. CALL LIGHT WITHIN EASY REACH
[2018-04-25 07:43] LABS: BASOPHILS % (AUTO) 0.3 % (0.0-2.0); EOSINOPHILS % (AUTO) 0.2 % (0.0-6.0); HEMATOCRIT 43 % (39-51); HEMOGLOBIN 14.3 g/dL (13.5-17.5); LYMPHOCYTES # (AUTO) 0.8 /CMM (0.8-4.8); LYMPHOCYTES % (AUTO) 7.4 % (20.0-44.0); MEAN CORPUSCULAR HEMOGLOBIN 31 PG (26.0-33.0); MEAN CORPUSCULAR HGB CONC 33 g/dl (31.0-36.0); MEAN CORPUSCULAR VOLUME 95 fL (80-96); MONOCYTES # (AUTO) 0.5 /CMM (0.1-1.30); MONOCYTES % (AUTO) 4.9 % (2.0-12.0); NEUTROPHILS # (AUTO) 9.6 /CMM (1.8-8.9); NEUTROPHILS % (AUTO) 87.2 % (43.0-81.0); PLATELET COUNT (AUTO) 288 /CMM (150-450); RDW COEFFICIENT OF VARIATION 13.2 (11.5-15.0); RED BLOOD CELL COUNT(AUTO) 4.57 MIL/uL (4.5-6.0)
[2018-04-25 07:59] LABS: CARBON DIOXIDE 31 mmol/L (21-32); CHLORIDE 94 mmol/L (98-107); CREATININE 0.6 mg/dL (0.6-1.3); GLUCOSE 109 mg/dL (74-106); MAGNESIUM 1.8 mg/dL (1.8-2.4); PHOSPHORUS 2.9 mg/dL (2.5-4.9); POTASSIUM 3.9 mmol/L (3.5-5.1); SODIUM SERUM 130 mmol/L (136-145); UREA NITROGEN, BLOOD 15 mg/dL (7-18)
[2018-04-25 08:00] VITALS: BP 147/73
[2018-04-25] MEDS: DOCUSATE SODIUM 100 MG CAPSULE PO SCH ×2 (08:14→16:14)
[2018-04-25] MEDS: ENSURE ENLIVE CHOC 237 ML CAN PO SCH ×3 (08:14→16:14)
[2018-04-25] MEDS: PANTOPRAZOLE 40 MG TABLET.DR PO SCH (08:14)
[2018-04-25] MEDS: AMLODIPINE BESYLATE 10 MG TABLET PO SCH (08:14)
[2018-04-25] MEDS: LISINOPRIL (20MG) 20 MG TABLET PO SCH (08:14)
[2018-04-25] MEDS: NICOTINE PATCH (21MG) 21 MG PATCH.TD24 TD SCH (08:15)
[2018-04-25 16:00] VITALS: BP 138/72
--- NOTE | 2018-04-25 18:51 | NUR ---
MS RN NOTES PATIENT RESTING INSIDE ROOM. AWAKE, ALERT AND ORIENTED X 2, VERBALLY RESPONSIVE AND RESPONDS TO VERBAL AND TACTILE STIMULI. BREATHING EVEN AND UNLABORED. NO SOB OR ACUTE DISTRESS NOTED. NO CHANGES IN LOC NOTED. PATIENT CALM AND RELAXED. REMAINS AFEBRILE, SKIN DRY AND WARM TO TOUCH. IV INTACT AND PATENT. NECK BRACE AT BEDSIDE. SAFETY PRECAUTIONS IN PLACE. GARCIA CATHETER IN PLACE AND DRAINING WITH YELLOW URINE OUTPUT ON COLLECTING BAG. WILL ENDORSE TO INCOMING SHIFT FOR ENRIKE. BED LOCKED AND IN LOW POSITION. BED ALARM ON. CALL LIGHT WITHIN EASY REACH
--- NOTE | 2018-04-25 19:30 | NUR ---
MS RN NOTES RECEIVED LAYING COMFORTABLY ON BED,A/O X1-2,SPEAK IRANIAN,STERI STRIPS INTACT AND DRY ON THE RIGHT NECK.GARCIA CATH IN PLACE DRAINING YELLOWISH URINE OUTPUT.SALINE LOCK LEFT AC INTACT AND PATENT.FALL PRECAUTION OBSERVED.WILL CONTINUE TO MONITOR STATUS.
[2018-04-25 20:00] VITALS: BP 110/66
--- NOTE | 2018-04-26 06:13 | NUR ---
MS RN NOTES SLEPT WELL AT NIGHT.GARCIA CATH REMAINS PATENT.FOR D/C PLANNING GOING EITHER ARU OR SNF.WILL ENDORSE TO DAY NURSE FOR ENRIKE.
--- NOTE | 2018-04-26 07:15 | NUR ---
RN NOTES RECEIVED PATIENT AWAKE ALERT AND VERBALLY RESPONSIVE NOTED WITH CONFUSION AND FORGETFULNESS. RESPIRATIONS EVEN AND UNLABORED, PATIENT REPOSITIONED, IN NO APPARENT DISCOMFORT. IV ACCESS TO LAC 20 G PATENT AND INTACT NO REDNESS OR INFILTRATION NOTED. KEPT CLEAN DRY AND COMFORTABLE, REORIENTED NEEDED. SAFETY MEASURES IN PLACE, CALL LIGHT WITHIN EASY REACH WILL CONTINUE TO MONITOR
[2018-04-26 08:00] VITALS: BP 125/75
[2018-04-26] MEDS: AMLODIPINE BESYLATE 10 MG TABLET PO SCH (08:41)
[2018-04-26] MEDS: DOCUSATE SODIUM 100 MG CAPSULE PO SCH ×2 (08:41→17:00)
[2018-04-26] MEDS: PANTOPRAZOLE 40 MG TABLET.DR PO SCH (08:41)
[2018-04-26] MEDS: NICOTINE PATCH (21MG) 21 MG PATCH.TD24 TD SCH (08:42)
[2018-04-26] MEDS: LISINOPRIL (20MG) 20 MG TABLET PO SCH (09:29)
[2018-04-26] MEDS: ENSURE ENLIVE CHOC 237 ML CAN PO SCH ×3 (09:48→18:04)
[2018-04-26] MEDS ORDERED: NICO-677 TD (11:35)
[2018-04-26 16:00] VITALS: BP 93/55
[2018-04-26] MEDS ORDERED: IPRATROPIUM NEB FS 0.5 MG/2.5 ML AMPUL.NEB NEB PRN (17:30)
[2018-04-26] MEDS ORDERED: LEVOFLOXACIN 500 MG /D5W 100ML 500 MG in PREMIX 1 EA IV SCH (18:00)
--- NOTE | 2018-04-26 18:00 | NUR ---
RN MS NOTES CALLED RT MD ORDERED NEBULIZER, RT ASSESSED PT REMINDED PT TO KEEP O2 ON, WILL HOLD OFF ON NEBULIZER TREATMENT AT THIS TIME AND ADMINISTER PRN, PT PREVIOUS SMOKER CONTINUE TO MONITOR RESPIRATORY STATUS, O2 LEVEL NOTED AT 90% ON 3L VIA NC, PT REMOVING AT TIMES. RESPIRATIONS EVEN AND UNLABORED, WILL CONTINUE TO MONITOR
--- NOTE | 2018-04-26 18:09 | NUR ---
RT NURSE CALLED FOR PRN TX FOR PATIENT WITH SOB. RT ARRIVED TO FIND PATIENT EATING DINNER WITH ZERO SOB, CLEAR DIM BREATH SOUNDS, AWAKE, ALERT, NO COMPLAINTS OF SOB. PATIENT IS A SEVERE LONG TIME SMOKER WHOS SATURATION WAS 90% ON ROOM AIR. PATIENT PLACED ON 3L N/C AND WAS HAPPY TO CONTINUE EATING. PRN TX NOT GIVEN BECAUSE IT WAS NOT REQUIRED. SUPPLEMENTAL O2 WAS.
--- NOTE | 2018-04-26 19:20 | NUR ---
RN INITIAL NOTES Received patient A/Ox1 on semi-Fowlers position. With O2 inhalation @ 2LPM as ordered tolerated well, no SOB/respiratory distress noted. With peripheral IV line LAC G20 SL with ongoing Levaquin 500mg/D5W 500ml infusing well at 66.67ml/hr as ordered. With FC indwelling well with clear yellow urine output at 150ml level. No discomfort claimed at this time. Ensure safety, keep bed in low position, locked, with 3 padded side rails up. Will continue to monitor.
--- NOTE | 2018-04-26 19:23 | NUR ---
RN NOTES RECEIVED PATIENT AWAKE ALERT AND VERBALLY RESPONSIVE NOTED WITH CONFUSION AND FORGETFULNESS. RESPIRATIONS EVEN AND UNLABORED, PATIENT REPOSITIONED, IN NO APPARENT DISCOMFORT. IV ACCESS TO LAC 20 G PATENT AND INTACT NO REDNESS OR INFILTRATION NOTED. KEPT CLEAN DRY AND COMFORTABLE, REORIENTED NEEDED. SAFETY MEASURES IN PLACE, CALL LIGHT WITHIN EASY REACH WILL CONTINUE TO MONITOR Addendum: 04/26/18 at 1926 by TONJA BANKS RN RN NOTES/AMENDMENT PATIENT AWAKE ALERT AND VERBALLY RESPONSIVE NOTED WITH CONFUSION AND FORGETFULNESS. RESPIRATIONS EVEN AND UNLABORED, PATIENT REPOSITIONED, IN NO APPARENT DISCOMFORT. O2 SAT NOTED AT 94% ON 2L VIA NC, IV ACCESS TO LAC 20 G PATENT AND INTACT NO REDNESS OR INFILTRATION NOTED. KEPT CLEAN DRY AND COMFORTABLE, REORIENTED NEEDED. SAFETY MEASURES IN PLACE, CALL LIGHT WITHIN EASY REACH ENDORSED TO NEXT SHIFT FOR CONTINUITY OF CARE
[2018-04-26 20:00] VITALS: BP 102/68
[2018-04-26] MEDS: ALBUTEROL FS 2.5 MG/0.5 ML VIAL.NEB NEB SCH (20:17)
[2018-04-27] MEDS: ALBUTEROL FS 2.5 MG/0.5 ML VIAL.NEB NEB SCH ×4 (00:25→12:19)
--- NOTE | 2018-04-27 06:47 | NUR ---
MS RN CLOSING NOTES Patient awake on semi-Anand's on bed with patent peripheral IV line LAC G#20 SL. Able to sleep intermittently within the shift. With patent FC indwelling well with total 300ml clear yellow output. Sputum sample for culture collected by RT but noted to be bloody, stored for collection. Afebrile throughout the shift, no new unsualities noted. Saturating at 90s within the shift. Endorsed to the next shift.
--- NOTE | 2018-04-27 07:30 | NUR ---
RN MS NOTES PT IN BED, AWAKE, ALERT TO SELF, NO SIGN OF PAIN, NOT IN DISTRESS, BREATHING TREATMENT BEING ADMINSTERED BY RT, CALL LIGHT WITHIN REACH, NEEDS ATTENDED, KEPT COMFORTABLE.
[2018-04-27 08:00] VITALS: BP 141/70
[2018-04-27 08:51] VITALS: BP 141/70
[2018-04-27] MEDS: DOCUSATE SODIUM 100 MG CAPSULE PO SCH (08:51)
[2018-04-27] MEDS: PANTOPRAZOLE 40 MG TABLET.DR PO SCH (08:51)
[2018-04-27] MEDS: LISINOPRIL (20MG) 20 MG TABLET PO SCH (08:51)
[2018-04-27] MEDS: AMLODIPINE BESYLATE 10 MG TABLET PO SCH (08:51)
[2018-04-27] MEDS: ENSURE ENLIVE CHOC 237 ML CAN PO SCH ×2 (08:52→13:35)
[2018-04-27] MEDS: NICOTINE PATCH (21MG) 21 MG PATCH.TD24 TD SCH (08:58)
[2018-04-27] MEDS ORDERED: LEVO500T75 PO (12:48)
--- NOTE | 2018-04-27 13:30 | NUR ---
RN MS NOTES PT IN BED, AWAKE, VERBALLY RESPONSIVE, NO SIGN OF PAIN OR DISTRESS, WITH PERIODS OF CONFUSION, SEEN BY DR. BEEBE, DISCHARGE ORDER GIVEN, PT AND DAUGHTER MYRIAM INFORMED, CAME TO VISIT, DISCHARGE AND MEDICATION INSTRUCTIONS PROVIDED TO PT AND DAUGHTER, REPORT GIVEN TO [facility], [facility] APPLIED PRIOR TO TRANSFER TO [facility], PICKED UP BY 2 AMBULANCE PERSONNEL, LEFT IN STABLE CONDITION.
== END 2018-04-27 13:30 | DRG 347 ==
LOC: TELE 19:37 → MED 04-24 09:48
PROVIDERS: ADMIT Nurse Practitioner Acute Care; ATTEND Nurse Practitioner Acute Care
DX: M50.022 Cervical disc disorder at C5-C6 level with myelopathy (principal); E43 Unspecified severe protein-calorie malnutrition; G92 Toxic encephalopathy; M48.02 Spinal stenosis, cervical region; E87.1 Hypo-osmolality and hyponatremia; E83.42 Hypomagnesemia; Z68.1 Body mass index [BMI] 19.9 or less, adult; I10 Essential (primary) hypertension; K21.9 Gastro-esophageal reflux disease without esophagitis; Z79.01 Long term (current) use of anticoagulants; Z79.899 Other long term (current) drug therapy; Z72.0 Tobacco use; Z88.8 Allergy status to other drugs, medicaments and biological substances; Z91.011 Allergy to milk products; R29.6 Repeated falls
CPT/HCPCS: 31720; 36415; 71045-TC; 80048-TC; 80053-TC; 83735-TC; 83935-TC; 84100-TC; 84300-TC; 84443-TC; 84550-TC; 85025-TC; 87070-TC; 87081-TC; 92611-TC; 94640-TC; 97110-TC; 97530-TC; A4216; J1956; J2270; J2405; J3475; J7050; Z7610